=== PATIENT | male | born 1970 | race Caucasian/White ===

== ENCOUNTER 2016-08-06 15:58 | Emergency (ER) | payer SELFPAY ==
[2016-08-06 19:46] VITALS: BP 137/105
--- NOTE | 2016-08-06 19:58 | UC ---
Respiratory Complaint HPI - HPI Summary HPI Summary: 45 yo male with cough x 4 weeks Initially a lot of sinus pressure and post nasal drip now primarily in chest chest tightness productive cough wheezing no CP or SOB smoker - History of Current Complaint Chief Complaint: UCRespiratory Stated Complaint: COUGH Time Seen by Provider: 08/06/16 19:51 Hx Obtained From: Patient Onset/Duration: Gradual Onset, Lasting Weeks Timing: Constant Severity Initially: Mild Severity Currently: Moderate Pain Intensity: 4 Pain Scale Used: 0-10 Numeric Character: Cough: Productive Aggravating Factors: Exertion, Deep Breaths Alleviating Factors: Nothing Associated Signs And Symptoms: Positive: Wheezing, Nasal Congestion, Hoarseness , Sinus Discomfort Related History: Similar Episode/Dx as: - bronchitis...he has use inhalers - Allergies/Home Medications Allergies/Adverse Reactions: Allergies Allergy/AdvReac Type Severity Reaction Status Date / Time No Known Allergies Allergy Verified 08/06/16 19:39 Home Medications: Home Medications guaiFENesin ER TAB [Mucinex*] 1,200 mg PO BID PRN 08/06/16 [History Confirmed ] PMH/Surg Hx/FS Hx/Imm Hx Previously Healthy: Yes Endocrine History Of: Denies: Diabetes Cardiovascular History Of: Reports: Cardiac Disorders - Pacemaker for 3* Heart Block Denies: Hypertension Respiratory History Of: Reports: Bronchitis, Pneumonia Denies: Asthma - Surgical History Surgical History: Yes Surgery Procedure, Year, and Place: Umbilical Herniorrhaphies, 2013 2014 2015, [place] - Family History Known Family History: Positive: Hypertension, Respiratory Disease - Social History Alcohol Use: None Substance Use Type: None Smoking Status (MU): Heavy Every Day Tobacco Smoker Type: Cigarettes, Smokeless Tobacco Amount Used/How Often: ~1 PPD and 1/2 can a day Length of Time of Smoking/Using Tobacco: 38 Years Have You Smoked in the Last Year: Yes Household Exposure Type: Cigarettes - Immunization History Most Recent Influenza Vaccination: Not the 2015/2016 Season Review of Systems Constitutional: Negative Skin: Negative Eyes: Negative ENT: Nasal Discharge Respiratory: Cough Cardiovascular: Negative Gastrointestinal: Negative Genitourinary: Negative Motor: Negative Neurovascular: Negative Musculoskeletal: Negative Neurological: Negative Psychological: Negative All Other Systems Reviewed And Are Negative: Yes Physical Exam Triage Information Reviewed: Yes Appearance: Well-Appearing, No Pain Distress, Well-Nourished, Obese Vital Signs: Initial Vital Signs Temp 98.9 F 08/06/16 19:36 Pulse 102 08/06/16 19:36 Resp 24 08/06/16 19:36 BP 137/105 08/06/16 19:36 Pulse Ox 100 08/06/16 19:36 Vital Signs Reviewed: Yes Eyes: Positive: Conjunctiva Clear. Negative: Conjunctiva Inflamed, Discharge ENT: Positive: Hearing grossly normal, Nasal congestion, Nasal drainage. Negative: Trismus, Muffled/hoarse voice Neck: Positive: Supple, Nontender, No Lymphadenopathy Respiratory: Positive: Lungs clear, Normal breath sounds, No respiratory distress, No accessory muscle use Cardiovascular Exam: Normal Cardiovascular: Positive: RRR Musculoskeletal: Positive: Strength Intact, ROM Intact, No Edema Neurological: Positive: Alert, Muscle Tone Normal. Negative: Fatigued Psychological Exam: Normal Skin Exam: Normal UC Diagnostic Evaluation - Laboratory O2 Sat by Pulse Oximetry: 100 - normal/not hypoxic Respiratory Course/Dx - Differential Dx/Diagnosis Provider Diagnoses: aqcute bronchitis with bronchospasm Discharge - Discharge Plan Condition: Stable Disposition: HOME Prescriptions: Amoxicillin (*) 875 mg PO BID #20 tab Prednisone [Deltasone] 40 mg PO DAILY #10 tab Patient Education Materials: Acute Bronchitis (ED) Forms: *Work Release Referrals: [facility] [Outside] - If Needed (they will helop you find a local MD) Additional Instructions: continue to try to stop smoking recheck in 4 days if not better recheck sooner for worsening symptoms
[2016-08-06] MEDS ORDERED: predniSONE TAB* 20 MG PO ONE (20:01)
[2016-08-06] MEDS ORDERED: Albuterol HFA INHALER* 8 gm MDI INH ONE (20:01)
== END 2016-08-06 20:18 | disposition home or self-care (01) ==
LOC: UCCORT 15:58
DX: J20.9 Acute bronchitis, unspecified (principal); R09.81 Nasal congestion; F17.210 Nicotine dependence, cigarettes, uncomplicated
CPT/HCPCS: 94640; 99212; A9270-GY; G0463; J7512

== ENCOUNTER 2017-01-04 13:01 | Emergency (ER) | payer SELFPAY ==
[2017-01-04 13:42] VITALS: BP 130/101
--- NOTE | 2017-01-04 14:29 | UC ---
Skin Complaint HPI - HPI Summary HPI Summary: Patient scratched derrick glass right toew with a backscratcher and now has an ucleration of the ote, the toe is red and swollend, the foot is also swollen. - History of Current Complaint Chief Complaint: UCLowerExtremity Time Seen by Provider: 01/04/17 14:16 Stated Complaint: RIGHT FOOT,3RD TOE Hx Obtained From: Patient Onset/Duration: Sudden Onset, Lasting Days Skin Exposure Onset/Duration: Days Ago Timing: Constant Onset Severity: Mild Current Severity: Moderate Location: Discrete, Foot (Right) Character: Swelling, Pruritus, Redness, Painful Aggravating: Touch Alleviating: Nothing Related History: Trauma - Allergy/Home Medications Allergies/Adverse Reactions: Allergies Allergy/AdvReac Type Severity Reaction Status Date / Time No Known Allergies Allergy Verified 01/04/17 13:29 Review of Systems Constitutional: Negative Skin: Other - ulcer Eyes: Negative ENT: Negative Respiratory: Negative Cardiovascular: Negative Gastrointestinal: Negative Genitourinary: Negative Motor: Negative Neurovascular: Negative Musculoskeletal: Negative Neurological: Negative Psychological: Negative All Other Systems Reviewed And Are Negative: Yes PMH/Surg Hx/FS Hx/Imm Hx Previously Healthy: Yes - Surgical History Surgical History: Yes Surgery Procedure, Year, and Place: Umbilical Herniorrhaphies, 2013 2014 2015, [place] - Family History Known Family History: Positive: Hypertension, Respiratory Disease - Social History Alcohol Use: None Substance Use Type: Marijuana Substance Use Comment - Amount & Last Used: occasionally Smoking Status (MU): Heavy Every Day Tobacco Smoker Type: Cigarettes, Smokeless Tobacco Amount Used/How Often: 1 ppd Length of Time of Smoking/Using Tobacco: 38 Years Have You Smoked in the Last Year: Yes Household Exposure Type: Cigarettes - Immunization History Most Recent Influenza Vaccination: Not the 2015/2016 Season Most Recent Tetanus Shot: UTD Most Recent Pneumonia Vaccination: N/A Physical Exam Triage Information Reviewed: Yes Appearance: Ill-Appearing, Pain Distress, Obese Vital Signs: Initial Vital Signs Temp 98.4 F 01/04/17 13:30 Pulse 90 01/04/17 13:30 Resp 18 01/04/17 13:30 BP 130/101 01/04/17 13:30 Pulse Ox 100 01/04/17 13:30 Vital Signs Reviewed: Yes Eye Exam: Normal Eyes: Positive: Conjunctiva Clear ENT: Positive: Hearing grossly normal, Pharynx normal, TMs normal Dental Exam: Normal Neck exam: Normal Neck: Positive: Supple, Nontender, No Lymphadenopathy Respiratory Exam: Normal Respiratory: Positive: Chest non-tender, Lungs clear, Normal breath sounds Cardiovascular Exam: Normal Cardiovascular: Positive: RRR, No Murmur, Pulses Normal Abdominal Exam: Normal Abdomen Description: Positive: Nontender, No Organomegaly, Soft Bowel Sounds: Positive: Present Musculoskeletal Exam: Normal Musculoskeletal: Positive: Strength Intact, ROM Intact, No Edema Neurological Exam: Normal Neurological: Positive: Alert, Muscle Tone Normal Psychological Exam: Normal Skin Exam: Normal Course/Dx - Course Course Of Treatment: hx obtained, exam performed, meds reviewed, patient is in the room using chew, advised him to dispose of the chew while in the room, Patients BP is elevated, advised making an appointment with his PCP to discuss management and he is also wanting a script for viagra, provider advised talking with PCP as well about this issue as he needs a complete physical exam. treated for cellulitis - Differential Diagnoses - Skin Complaint Differential Diagnoses: Abscess, Cellulitis, Contact Dermatitis, MRSA - Diagnoses Provider Diagnoses: ulceration of right middle toe. cellulitis of right middle toe Discharge - Discharge Plan Condition: Stable Disposition: HOME Patient Education Materials: Cellulitis (ED) Additional Instructions: 1. take the medication as prescribed. 2. I recommend follow up with your provider to discuss the medication inquiry of viagra as well as your elevated Blood Pressure. 3. Your Blood pressure today was 130/101. 4. Soak your foot daily in warm water. 5. keep the area clean and dry.
== END 2017-01-04 14:44 | disposition home or self-care (01) ==
LOC: UCCORT 13:01
DX: L03.031 Cellulitis of right toe (principal); R03.0 Elevated blood-pressure reading, without diagnosis of hypertension; F17.210 Nicotine dependence, cigarettes, uncomplicated
CPT/HCPCS: 99213; G0463

== ENCOUNTER 2017-03-22 18:26 | Emergency (ER) | payer SELFPAY ==
--- NOTE | 2017-03-22 18:31 | UC ---
Lower Extremity/Ankle HPI - HPI Summary HPI Summary: 46 YEAR OLD MALE PRESENTS WITH RIGHT FOOT PAIN. - History of Current Complaint Stated Complaint: RIGHT FOOT COMPLAINT Time Seen by Provider: 03/22/17 18:30 Hx Obtained From: Patient Onset/Duration: Sudden Onset Severity Initially: Moderate Severity Currently: Moderate Pain Scale Used: 0-10 Numeric - 5 Aggravating Factor(s): Standing Alleviating Factor(s): Elevation Able to Bear Weight: Yes - Allergies/Home Medications Allergies/Adverse Reactions: Allergies Allergy/AdvReac Type Severity Reaction Status Date / Time No Known Allergies Allergy Verified 01/04/17 13:29 Home Medications: Home Medications DOXYcycline CAP(*) [DOXYcycline 100MG CAP(*)] 100 mg PO BID 03/22/17 [History Confirmed 03/22/17] PMH/Surg Hx/FS Hx/Imm Hx Previously Healthy: Yes - Surgical History Surgical History: Yes Surgery Procedure, Year, and Place: Umbilical Herniorrhaphies, 2013 2014 2015, [place] - Family History Known Family History: Positive: Hypertension, Respiratory Disease - Social History Alcohol Use: None Substance Use Type: Marijuana Substance Use Comment - Amount & Last Used: occasionally Smoking Status (MU): Heavy Every Day Tobacco Smoker Type: Cigarettes, Smokeless Tobacco Amount Used/How Often: 1 ppd Length of Time of Smoking/Using Tobacco: 38 Years Have You Smoked in the Last Year: Yes Household Exposure Type: Cigarettes - Immunization History Most Recent Influenza Vaccination: Not the 2015/2016 Season Most Recent Tetanus Shot: UTD Most Recent Pneumonia Vaccination: N/A Review of Systems Constitutional: Negative Skin: Negative Eyes: Negative ENT: Negative Respiratory: Negative Cardiovascular: Negative Gastrointestinal: Negative Genitourinary: Negative Motor: Negative Neurovascular: Negative Musculoskeletal: Other: - RIGHT FOOT PAIN/SWELLING Neurological: Negative Psychological: Negative All Other Systems Reviewed And Are Negative: Yes Physical Exam Triage Information Reviewed: Yes Eye Exam: Normal ENT Exam: Normal Dental Exam: Normal Neck exam: Normal Neck: Positive: 1 Respiratory Exam: Normal Cardiovascular Exam: Normal Abdominal Exam: Normal Musculoskeletal: Positive: Other: - RIGHT FOOT SWELLING/PAIN Neurological Exam: Normal Psychological Exam: Normal Skin Exam: Normal Lower Extremity Course/Dx - Differential Dx/Diagnosis Provider Diagnoses: RIGHT FOOT SWELLING/PAIN Discharge - Discharge Plan Condition: Stable Disposition: HOME Patient Education Materials: Foot Sprain (ED), Leg Edema (ED) Referrals: Darline Brown MD [Primary Care Provider] - If Needed
[2017-03-22 18:37] VITALS: BP 151/92
--- NOTE | 2017-03-22 19:24 | RAD ---
INDICATION: Right foot swelling. TECHNIQUE: 3 views of the right foot were obtained. FINDINGS: There is diffuse soft tissue swelling which is most prominent along the dorsal aspect of the foot. The bones are in normal alignment. No significant focal osseous abnormality is seen. No erosive changes or periosteal reaction is noted. Joint spaces appear maintained. IMPRESSION: SOFT TISSUE SWELLING, NO SPECIFIC EVIDENCE FOR OSTEOMYELITIS.
--- NOTE | 2017-03-22 19:26 | RAD ---
INDICATION: Right lower leg swelling. TECHNIQUE: 2 views of the right lower leg were obtained. FINDINGS: There is diffuse soft tissue swelling. No significant focal osseous abnormality or fracture is seen. IMPRESSION: DIFFUSE SOFT TISSUE SWELLING.
== END 2017-03-22 19:45 | disposition home or self-care (01) ==
LOC: UCCORT 18:26
DX: M79.671 Pain in right foot (principal); M79.89 Other specified soft tissue disorders; F12.90 Cannabis use, unspecified, uncomplicated; F17.210 Nicotine dependence, cigarettes, uncomplicated
CPT/HCPCS: 99212; G0463

== ENCOUNTER 2018-04-24 16:13 | Emergency (ER) | payer SELFPAY ==
--- OUTSIDE RECORDS SUMMARY | 2018-04-24 16:22 | XMS REPORT ---
:1970 External Reference #:[id number] Author Organization [facility] Address [address] [place] [address] Phone [phone] Care Team Providers Name Role Phone Darline Brown MD Care Team Information Animal Nurse Unavailable Payers Type Date Identification Numbers Payment Provider Subscriber Commercial Policy Number: [id number] [employer] Lan Montoya PayID: [id number] [address] [address] [place] [address] Problems Description No Information Family History Date Family Member(s) Problem(s) Comments Father Heart Disease Father [place] Father Peripheral Vascular Disease (PVD) Father Hypertension Mother Chronic Obstructive Pulmonary Disease (COPD) Social History Type Date Description Comments Cigarette Use Current Cigarette Smoker 1 1/2 Packs Daily ETOH Use Denies alcohol use Recreational Drug Use cannibus use Allergies, Adverse Reactions, Alerts Date Description Reaction Status Severity Comments 03/07/2010 NKDA active Medications Medication Date Status Form Strength Qnty SIG Indications Ordering Provider No Active Active Unknown Medications 018 Nicotrol Hx Inhaler 10mg 336unit one Elyn Ring, 018 - s inhaler up MD to 10 a 018 day Atorvastatin Hx Tablets 10mg 90tabs 1 by mouth Elyn Ring, Calcium 018 - every day 018 No Active Hx Unknown Medications 017 - 018 Lisinopril Hx Tablets 10mg 90tabs 1 by mouth Elyn Ring, 015 - every day MD 015 Lovastatin Hx Tablets 20mg 90tabs 1 by mouth Elyn Ring, 015 - every day 017 Norvasc Hx Tablets 5mg 30tabs 1 by mouth Elyn Ring, 015 - every day 017 Iodoform Hx Gauze 1Bottle apply Elyn Ring, 015 - small amount bid 017 under dsd Amoxicillin Hx Tablets 500mg 30tabs 1 by mouth Elyn Ring, 015 - three times a 017 day No Medication 00/00/0 Hx Unknown 000 - 015 Ibuprofen 0 Hx Tablets 400mg 1 tab by Unknown 000 - mouth every 6 018 hours as needed Vital Signs Date Vital Result Comment 03/26/2018 BP Systolic 132 mmHg BP Diastolic 80 mmHg Height 65 inches 5'5" Weight 270.00 lb BMI (Body Mass Index) 44.9 kg/m2 12/18/2017 BP Systolic 138 mmHg BP Diastolic 88 mmHg Heart Rate 104 /min Respiratory Rate 20 /min Weight 285.00 lb O2 % BldC Oximetry 92 % 03/28/2017 BP Systolic 130 mmHg BP Diastolic 65 mmHg 03/29/2015 BP Systolic 138 mmHg BP Diastolic 92 mmHg Height 65 inches 5'5" Weight 249.00 lb BMI (Body Mass Index) 41.4 kg/m2 02/16/2015 Height 65 inches 5'5" Weight 247.00 lb BMI (Body Mass Index) 41.1 kg/m2 03/28/2010 BP Systolic 122 mmHg BP Diastolic 80 mmHg 03/28/2010 BP Systolic 114 mmHg 03/07/2010 BP Systolic 120 mmHg BP Diastolic 100 mmHg Heart Rate 100 /min Respiratory Rate 16 /min Height 64 inches 5'4" Weight 221.00 lb BMI (Body Mass Index) 37.9 kg/m2 O2 % BldC Oximetry 97 % Results Test Date Test Result H/L Range Note Lipid Panel 12/10/2017 Cholesterol 222 mg/dL High <199 1 HDL Cholesterol 38 mg/dL Low >40 1 Cholesterol/HDL Ratio 5.8 CALC High <5.0 1 LDL Chol,Calculated 146 mg/dL High 0-100 1, 2 Triglycerides 236 mg/dL High <150 1 Non-HDL Cholesterol 183 mg/dL High <130 1, 3 Hepatic Function Panel 12/10/2017 Alkaline Phosphatase 68 U/L 40-115 1 Ast 23 U/L 10-40 1 Alt 38 U/L 9-46 1 Bilirubin,Total 0.6 mg/dL 0.2-1.2 1 Bilirubin,Direct 0.1 mg/dL < Or=0.2 1 Protein,Total 6.8 g/dL 6.1-8.1 1 Albumin 4.4 g/dL 3.6-5.1 1 Globulin,Calculated 2.4 g/dL 1.9-3.7 1 A/G Ratio 1.8 1.0-2.5 1 CBC W/ Diff & PLT 12/10/2017 WBC 8.6 thous/L 3.8-10.8 1 RBC 5.75 mill/L 4.20-5.80 1 Hemoglobin 17.7 g/dL High 13.2-17.1 1 Hematocrit 54.1 % High 38.5-50.0 1 MCV 94.2 FL 80.0-100.0 1 MCH 30.7 pg 27.0-33.0 1 MCHC 32.6 g/dL 32.0-36.0 1 RDW 14.8 % 11.0-15.0 1 Platelet Count 242 thous/L 140-400 1 Platelet Sufficiency PENDING 1 MPV 8.1 FL 7.5-12.5 1 Neutrophils,Absolute 5670 cells/L 0794-6464 1 Bands,Absolute PENDING 1 Metamyelocytes,Absolute PENDING 1 Myelocytes,Absolute PENDING 1 Promyelocytes,Absolute PENDING 1 Lymphocytes,Absolute 2410 cells/L 850-3900 1 Monocytes,Absolute 410 cells/L 200-950 1 Eosinophils,Absolute 120 cells/L 15-500 1 Basophils,Absolute 30 cells/L 0-200 1 Blast Cells,Absolute PENDING 1 Nucleated RBC,Absolute PENDING 1 Total Neutrophils,% 66 % 40-75 1 Bands,% PENDING 1 Metamyelocytes,% PENDING 1 Myelocytes,% PENDING 1 Promyelocytes,% PENDING 1 Total Lymphocytes,% 28 % 12-47 1 Monocytes,% 5 % 4-12 1 Eosinophils,% 1 % 0-4 1 Basophils,% 0 % 0-1 1, 4 Blasts,% PENDING 1 Nucleated RBC PENDING 1 RBC Morphology PENDING 1 Anisocytosis PENDING 1 Poikilocytosis PENDING 1 Microcytosis PENDING 1 Macrocytosis PENDING 1 Polychromasia PENDING 1 Hypochromasia PENDING 1 Target Cells PENDING 1 Basophilic Stippling PENDING 1 Comment PENDING 1 Comp Metabolic Panel 12/10/2017 Sodium 140 mmol/L 135-146 1 Potassium 4.2 mmol/L 3.5-5.3 1 Chloride 102 mmol/L 98-110 1 Carbon Dioxide 30 mmol/L 20-31 1 Calcium 9.2 mg/dL 8.6-10.3 1 Alkaline Phosphatase 68 U/L 40-115 1 Ast 23 U/L 10-40 1 Alt 38 U/L 9-46 1 Bilirubin,Total 0.6 mg/dL 0.2-1.2 1 Glucose 113 mg/dL High 65-99 1, 5 Urea Nitrogen (BUN) 16 mg/dL 7-25 1 Creatinine 0.88 mg/dL 0.60-1.35 1 BUN/Creatinine Ratio 18.5 6-22 1 Protein,Total 6.8 g/dL 6.1-8.1 1 Albumin 4.4 g/dL 3.6-5.1 1 Globulin,Calculated 2.4 g/dL 1.9-3.7 1 A/G Ratio 1.8 1.0-2.5 1 Egfr Non-Afr. Nepalese 101 ML/MIN/1.73M2 > Or=60 1 Egfr 117 ML/MIN/1.73M2 > Or=60 1 Laboratory test finding 12/10/2017 TSH 1.24 mIU/L 0.40-4.50 1 T4,Free 1.2 ng/dL 0.8-1.8 1 1 FASTING 2 LDL-C is now calculated using the Timoteo-Eulalia calculation, which is a validated novel method providing better accuracy than the Friedewald equation in the estimation of LDL-C. Timoteo CASTELLANOS et al.MARYAM.2013;310(19):6610-9180 Desirable range <100 mg/dL for primary prevention; <70 mg/dL for patients with CHD or diabetic patients with >or=2 CHD risk factors. For additional information, please refer to http://education.[employer] [place]/faq/GMK407(This link is being provided for informational/educational purposes only.) 3 For patients with diabetes plus 1 major ASCVD risk factor, treating to a non-HDL-C goal of <100 mg/dL (LDL-C of <70 mg/ dL) is considered a therapeutic option. 4 Relative blood cell counts (%) should be compared with absolute cell counts (cells/mcL). Relative counts may not be clinically meaningful if the absolute count of one or more cell type is decreased. Reference ranges for relative cell counts derived from: A Manual of Laboratory and Diagnostics Tests, 9th Ed, Donte Attila & Perdomo, 2015. Pediatric Reference Intervals, 7th Ed, [employer], 2011. 5 GLUCOSE REFERENCE RANGE BASED ON FASTING SPECIMEN. Procedures Description No Information Encounters Type Date Location Provider CPT E/M Office Visit 03/26/2018 9:15a [place] [id number] Office Visit 12/18/2017 2:45p [place] [id number] Office Visit 03/28/2017 2:00p [place] [id number] Office Visit 03/29/2015 4:00p [place] [id number] Office Visit 02/16/2015 4:00p [place] [id number] Office Visit 03/28/2010 3:30p [place] [id number]
--- OUTSIDE RECORDS SUMMARY | 2018-04-24 16:23 | XMS REPORT ---
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 Bolivian 101 ML/MIN/1.73M2 > Or=60 1 Egfr 117 ML/MIN/1.73M2 > Or=60 1 Laboratory test finding 12/10/2017 TSH 1.24 mIU/L 0.40-4.50 1 T4,Free 1.2 ng/dL 0.8-1.8 1 1 FASTING 2 LDL-C is now calculated using the Timoteo-Eulalia calculation, which is a validated novel method providing better accuracy than the Friedewald equation in the estimation of LDL-C. Timoteo CASTELLANOS et al.MARYAM.2013;310(19):3676-0816 Desirable range <100 mg/dL for primary prevention; <70 mg/dL for patients with CHD or diabetic patients with >or=2 CHD risk factors. For additional information, please refer to http://education.[employer]/faq/MPU090(This link is being provided for informational/educational purposes [...] Date Location Provider CPT E/M Office Visit 12/18/2017 2:45p [place] [address] Office Visit 03/28/2017 2:00p [place] [id number] Office Visit 03/29/2015 4:00p [place] [id number] Office Visit 02/16/2015 4:00p [place] [address] Office Visit 03/28/2010 3:30p [place] [address]
[2018-04-24 17:11] VITALS: BP 127/88
--- NOTE | 2018-04-24 18:21 | UC ---
Eye Complaint HPI - HPI Summary HPI Summary: 47-year-old male presents with one-day history of right lower eyelid tenderness and swelling with redness and itchiness of right eye. States he tried using some erythromycin ointment that he had at home but swelling has continued to worsen. Denies fever, chills, visual disturbances, trauma, or discharge. - History of Current Complaint Chief Complaint: UCEye Stated Complaint: RT EYE COMP Time Seen by Provider: 04/24/18 17:49 Hx Obtained From: Patient Onset/Duration: Gradual Onset Timing: Constant Severity Initially: Mild Severity Currently: Mild Pain Intensity: 3 Location of Injury: Conjunctiva, Eye Lid (lower) Character: Throbbing Aggravating Factor(s): Other - Touch Alleviating Factor(s): Nothing Associated Signs And Symptoms: Positive: Swelling - Right lower lid. Negative: Photophobia, Drainage (Clear), Drainage (Purulent) - Touch, Vision Impairment Right, Fever - Allergies/Home Medications Allergies/Adverse Reactions: Allergies Allergy/AdvReac Type Severity Reaction Status Date / Time No Known Allergies Allergy Verified 04/24/18 17:02 PMH/Surg Hx/FS Hx/Imm Hx Previously Healthy: Yes - denies significant past medical history - Surgical History Surgical History: Yes Surgery Procedure, Year, and Place: Umbilical Herniorrhaphies, 2013 2014 2015, [place] - Family History Known Family History: Positive: Hypertension, Respiratory Disease - Social History Occupation: Employed Full-time Lives: With Family Alcohol Use: None Substance Use Type: Marijuana Substance Use Comment - Amount & Last Used: occasionally Smoking Status (MU): Heavy Every Day Tobacco Smoker Type: Cigarettes, Smokeless Tobacco Amount Used/How Often: 1 ppd Length of Time of Smoking/Using Tobacco: 38 Years Have You Smoked in the Last Year: Yes Household Exposure Type: Cigarettes - Immunization History Most Recent Influenza Vaccination: Not the 2016/2016 Season Most Recent Tetanus Shot: Apr 2018 Most Recent Pneumonia Vaccination: N/A Review of Systems Constitutional: Negative Skin: Negative Eyes: Eye Redness - Right eye with itchiness, Other - Right lower lid swelling and tenderness ENT: Negative Is Patient Immunocompromised?: No All Other Systems Reviewed And Are Negative: Yes Physical Exam Triage Information Reviewed: Yes Appearance: Well-Appearing, No Pain Distress, Obese Vital Signs: Initial Vital Signs Temp 97.8 F 04/24/18 17:03 Pulse 87 04/24/18 17:03 Resp 22 04/24/18 17:03 BP 127/88 04/24/18 17:03 Pulse Ox 96 04/24/18 17:03 Vital Signs Reviewed: Yes Eyes: Positive: Conjunctiva Inflamed - Right eye, Other: - Chalazion with erythema and tenderness right lower lid near the inner canthus. Mild blepharitis of the right lower lid.. Negative: Discharge ENT: Positive: Normal ENT inspection Neck: Positive: Supple, Nontender, No Lymphadenopathy Respiratory: Positive: Lungs clear, Normal breath sounds, No respiratory distress Cardiovascular: Positive: RRR, No Murmur Neurological: Positive: Alert Skin Exam: Normal Eye Complaint Course/Dx - Course Course Of Treatment: 47 year old male with 1 day history swelling and tenderness to right lower eye lid with right eye redness and itching. Exam reveals a chalazion to the right lower lid near the inner canthus with mild swelling of lower lid. He also had mild conjuctival injection with itching therefore will with 5 day course Polytrim. He was given a referral to ophtalmology for follow up if no improvement in symtoms. - Differential Dx/Diagnosis Provider Diagnoses: chalazion right lower eyelid, conjunctivitis Discharge - Sign-Out/Discharge Documenting (check all that apply): Patient Departure All imaging exams completed and their final reports reviewed: No Studies - Discharge Plan Condition: Stable Disposition: HOME Prescriptions: Polymyx/Trimethoprim OPTH* [Polytrim OPHTH*] 1 drop RIGHT EYE Q4H 7 Days #1 btl Patient Education Materials: Chalazion (ED) Referrals: Darline Brown MD [Primary Care Provider] - Antonio Iniguez MD [Medical Doctor] - 3 Days (Call for appointment if no improvement.) Additional Instructions: Use Polytrim ophthalmic drops. Instill 1 drop into the affected eye every 4 hours while awake for 7 days. Apply warm moist compresses to eye for 15 minutes 4 times a day. You have been referred to Dr. Orozco, ophthalmology. Call for appointment in 3 days if no improvement in symptoms. Seek immediate medical attention if you develop fever greater than 100.5 F, have changes or loss of vision, increased swelling of the eye lid, pain that is not managed with over the counter pain medication, or any worsening of symptoms. - Billing Disposition and Condition Condition: STABLE Disposition: Home
== END 2018-04-24 18:28 | disposition home or self-care (01) ==
LOC: UCCORT 16:13
DX: H00.12 Chalazion right lower eyelid (principal); H10.9 Unspecified conjunctivitis; F17.210 Nicotine dependence, cigarettes, uncomplicated
CPT/HCPCS: 99212; G0463

== ENCOUNTER 2018-06-06 12:31 | Emergency (ER) | payer SELFPAY ==
[2018-06-06 14:49] VITALS: BP 140/96
[2018-06-06] MEDS ORDERED: Ketorolac INJ* 60 MG/2 ML VIAL IM ONE (15:08)
--- NOTE | 2018-06-06 15:14 | UC ---
UC General HPI - HPI Summary HPI Summary: ANITA 2 DAYS AGO WITH SOME PAIN TO HIS INNER R SHOULDER BLADE. NO HX INJURY. OCCURES WITH CERTAIN MOVEMENTS. PT POINTS TO R TRAPEZIUS MM. NO CP OR SOB. OCCASIONAL TINGLE R THUMB - History of Current Complaint Chief Complaint: UCUpperExtremity Stated Complaint: RT SHOULDER COMPLAINT Time Seen by Provider: 06/06/18 15:01 Hx Obtained From: Patient Pain Intensity: 6 Aggravating: MOVEMENT Associated Signs & Symptoms: Negative: Cough, Chest Pain, SOB, Weakness - Allergy/Home Medications Allergies/Adverse Reactions: Allergies Allergy/AdvReac Type Severity Reaction Status Date / Time No Known Allergies Allergy Verified 06/06/18 14:42 PMH/Surg Hx/FS Hx/Imm Hx - Surgical History Surgical History: Yes Surgery Procedure, Year, and Place: Umbilical Herniorrhaphies, 2013 2014 2015, [place] - Family History Known Family History: Positive: Hypertension, Respiratory Disease - Social History Alcohol Use: None Substance Use Type: Marijuana Substance Use Comment - Amount & Last Used: occasionally Smoking Status (MU): Heavy Every Day Tobacco Smoker Type: Cigarettes, Smokeless Tobacco Amount Used/How Often: 1 ppd Length of Time of Smoking/Using Tobacco: 38 Years Have You Smoked in the Last Year: Yes Household Exposure Type: Cigarettes - Immunization History Most Recent Influenza Vaccination: Not the 2015/2016 Season Most Recent Tetanus Shot: Apr 2018 Most Recent Pneumonia Vaccination: N/A Review of Systems Constitutional: Negative Skin: Negative Eyes: Negative ENT: Negative Respiratory: Negative Cardiovascular: Negative Gastrointestinal: Negative Genitourinary: Negative Motor: Negative Neurovascular: Negative Musculoskeletal: Negative Neurological: Negative Psychological: Negative Is Patient Immunocompromised?: No All Other Systems Reviewed And Are Negative: Yes Physical Exam Triage Information Reviewed: Yes Appearance: Well-Appearing Vital Signs: Initial Vital Signs Temp 98 F 06/06/18 14:43 Pulse 98 06/06/18 14:43 Resp 16 06/06/18 14:43 BP 140/96 06/06/18 14:43 Pulse Ox 97 06/06/18 14:43 Vital Signs Reviewed: Yes Eyes: Positive: Conjunctiva Clear ENT: Positive: Pharynx normal, TMs normal. Negative: Nasal congestion, Nasal drainage Neck: Positive: Supple, Nontender, No Lymphadenopathy Respiratory: Positive: Chest non-tender, Lungs clear, Normal breath sounds Cardiovascular: Positive: RRR, No Murmur Abdomen Description: Positive: Nontender, No Organomegaly, Soft Bowel Sounds: Positive: Present Musculoskeletal: Positive: Other: - BARE FROM WAIST UP;TRUNK HAS NO GROSS DEFOMRTY, SWELLING OR DISCOLORATION. R TRAPEZIUS IS PINK WHERE PT REMOVED A PAIN RELIEVED ADHESIVE PATCH. TRIGGER POINT SPOT TO R MEDIAL SCAPULAR BORDER OVER TRAPEZIUS MUSCLE. RUE HAS NO SWELLING, RASH OR DISCOLRATION AND HAS FULL S/ V/M FUNCTION. Neurological: Positive: Alert Psychological: Positive: Age Appropriate Behavior Skin Exam: Normal Course/Dx - Course Course Of Treatment: NO CONCERN FOR CARDIOPULMONARY ATHOLOGY. OF DISSECTION. EXAM C/W TRAPEZIUS MM SPASM. - Differential Dx - Multi-Symptom Provider Diagnoses: R TRAPEZIUS MM SPASM. Discharge - Sign-Out/Discharge Documenting (check all that apply): Patient Departure All imaging exams completed and their final reports reviewed: No Studies - Discharge Plan Condition: Stable Disposition: HOME Prescriptions: Cyclobenzaprine TAB* [Flexeril 10 MG TAB*] 10 mg PO TID PRN #10 tab PRN Reason: Spasms - Muscle Naproxen [Naprosyn 500 mg tab] 500 mg PO BID 5 Days #10 tablet Patient Education Materials: Muscle Spasm (ED) Referrals: Darline Brown MD [Primary Care Provider] - 5 Days - Billing Disposition and Condition Condition: STABLE Disposition: Home
== END 2018-06-06 15:40 | disposition home or self-care (01) ==
LOC: UCCORT 12:31
DX: M62.838 Other muscle spasm (principal); F17.210 Nicotine dependence, cigarettes, uncomplicated
CPT/HCPCS: 96372; 99212; G0463; J1885

== ENCOUNTER 2018-12-14 21:53 | Emergency (ER) | payer SELFPAY ==
[2018-12-14] MEDS ORDERED: Azithromycin TAB* 250 MG PO ONE (22:01)
[2018-12-14] MEDS ORDERED: predniSONE TAB* 20 MG PO ONE (22:02)
[2018-12-14] MEDS ORDERED: Albuterol HFA INHALER* 8 gm MDI INH ONE (22:02)
[2018-12-14 22:03] VITALS: BP 151/102
--- NOTE | 2018-12-14 22:06 | UC ---
Respiratory Complaint HPI - HPI Summary HPI Summary: 50-year-old male 48-year-old male comes in with a chief complaint of 9-10 days of upper respiratory tract infection symptoms. He's had runny nose nasal congestion is gone into his chest. Now is having some wheezing. Getting short of breath with activity. Shortness of breath is decreased when he is not active. He is a smoker. - History of Current Complaint Chief Complaint: UCGeneralIllness Stated Complaint: CONGESTION/TIRED/COUGH Time Seen by Provider: 12/14/18 21:56 Pain Intensity: 0 - Allergies/Home Medications Allergies/Adverse Reactions: Allergies Allergy/AdvReac Type Severity Reaction Status Date / Time No Known Allergies Allergy Verified 06/06/18 14:42 Home Medications: Home Medications Guaifenesin/Dextromethorphan [Cough Dm Syrup] 15 ml PO DAILY PRN 12/14/18 [ History Confirmed 12/14/18] guaiFENesin ER TAB [Mucinex*] 600 mg PO BID PRN 12/14/18 [History Confirmed 07/23] PMH/Surg Hx/FS Hx/Imm Hx Previously Healthy: Yes - Surgical History Surgical History: Yes Surgery Procedure, Year, and Place: Umbilical Herniorrhaphies, 2013 2014 2015, [place] - Family History Known Family History: Positive: Hypertension, Respiratory Disease - Social History Alcohol Use: None Substance Use Type: Marijuana Substance Use Comment - Amount & Last Used: Last used 2016 Smoking Status (MU): Heavy Every Day Tobacco Smoker Type: Cigarettes, Smokeless Tobacco Amount Used/How Often: 1 ppd Length of Time of Smoking/Using Tobacco: 38 Years Have You Smoked in the Last Year: Yes Household Exposure Type: Cigarettes - Immunization History Most Recent Influenza Vaccination: Not the 2016/2016 Season Most Recent Tetanus Shot: Apr 2018 Most Recent Pneumonia Vaccination: N/A Review of Systems All Other Systems Reviewed And Are Negative: Yes Constitutional: Positive: Negative Skin: Positive: Negative Eyes: Positive: Negative ENT: Positive: Nasal Discharge, Sinus Congestion Respiratory: Positive: Shortness Of Breath, Cough, Other - SEE HPI Cardiovascular: Positive: Negative Gastrointestinal: Positive: Negative Motor: Positive: Negative Neurovascular: Positive: Negative Musculoskeletal: Positive: Negative Neurological: Positive: Negative Psychological: Positive: Negative Is Patient Immunocompromised?: No Physical Exam Triage Information Reviewed: Yes Appearance: No Pain Distress, Well-Nourished, Ill-Appearing - MILD Vital Signs: Initial Vital Signs Temp 98.3 F 12/14/18 21:59 Pulse 105 12/14/18 21:59 Resp 18 12/14/18 21:59 BP 151/102 12/14/18 21:59 Pulse Ox 99 12/14/18 21:59 Vital Signs Reviewed: Yes Eye Exam: Normal Eyes: Positive: Conjunctiva Clear ENT: Positive: Pharyngeal erythema, Nasal congestion, Nasal drainage Neck: Positive: Supple Respiratory: Positive: Lungs clear, Normal breath sounds, No respiratory distress Cardiovascular: Positive: RRR Musculoskeletal: Positive: Strength Intact, ROM Intact Neurological: Positive: Alert, Muscle Tone Normal Psychological Exam: Normal Psychological: Positive: Age Appropriate Behavior Skin Exam: Normal Respiratory Course/Dx - Differential Dx/Diagnosis Provider Diagnosis: Bronchitis with bronchospasm, Elevated blood pressure reading Discharge - Sign-Out/Discharge Documenting (check all that apply): Patient Departure All imaging exams completed and their final reports reviewed: No Studies - Discharge Plan Condition: Stable Disposition: HOME Prescriptions: Azithromycin 250 mg PO DAILY #4 tablet predniSONE TAB* [Deltasone 20 MG TAB*] 40 mg PO DAILY #8 tab Patient Education Materials: Acute Bronchitis (ED), Hypertension (ED), Bronchospasm (ED) Referrals: Darline Brown MD [Primary Care Provider] - Additional Instructions: FOLLOW UP WITH YOUR DOCTOR WITHIN 1 WEEK FOR YOUR HIGH BLOOD PRESSURE. GET RECHECKED SOONER IF YOUR CONDITION WORSENS OR ANY QUESTIONS OR CONCERNS. - Billing Disposition and Condition Condition: STABLE Disposition: Home
--- NOTE | 2018-12-17 10:16 | UC ---
- Progress Note Progress Note: Patient filled prescription but then lost it. Prednisone script re-sent to pharmacy Course/Dx - Diagnoses Provider Diagnoses: Bronchitis with bronchospasm, Elevated blood pressure reading Discharge - Sign-Out/Discharge Documenting (check all that apply): Post-Discharge Follow Up All imaging exams completed and their final reports reviewed: No Studies - Discharge Plan Condition: Stable Disposition: HOME Prescriptions: Azithromycin 250 mg PO DAILY #4 tablet predniSONE [Prednisone 20 MG TAB] 20 mg PO DAILY #6 tablet predniSONE TAB* [Deltasone 20 MG TAB*] 40 mg PO DAILY #8 tab Patient Education Materials: Acute Bronchitis (ED), Hypertension (ED), Bronchospasm (ED) Referrals: Darline Brown MD [Primary Care Provider] - Additional Instructions: FOLLOW UP WITH YOUR DOCTOR WITHIN 1 WEEK FOR YOUR HIGH BLOOD PRESSURE. GET RECHECKED SOONER IF YOUR CONDITION WORSENS OR ANY QUESTIONS OR CONCERNS. - Billing Disposition and Condition Condition: STABLE Disposition: Home
== END 2018-12-14 22:12 | disposition home or self-care (01) ==
LOC: UCCORT 21:53
DX: J20.9 Acute bronchitis, unspecified (principal); R03.0 Elevated blood-pressure reading, without diagnosis of hypertension; F17.210 Nicotine dependence, cigarettes, uncomplicated
CPT/HCPCS: 99213; A9270-GY; G0463; J7512

== ENCOUNTER 2019-06-28 21:43 | Emergency (ER) | payer SELFPAY ==
--- NOTE | 2019-06-28 21:47 | UC ---
Throat Pain/Nasal Hari HPI - HPI Summary HPI Summary: 48-year-old male whose had a sore throat for one week. He has been taking leftover doxycycline as well as prednisone over the past couple of days with his last dose of doxycycline being tonight. - History of Current Complaint Stated Complaint: COUGH/SORE THROAT Time Seen by Provider: 06/28/19 21:46 Hx Obtained From: Patient Onset/Duration: Gradual Onset Severity: Mild Cough: None Associated Signs & Symptoms: Positive: Negative - Allergies/Home Medications Allergies/Adverse Reactions: Allergies Allergy/AdvReac Type Severity Reaction Status Date / Time No Known Allergies Allergy Verified 06/28/19 21:49 Home Medications: Home Medications DOXYcycline CAP(*) [DOXYcycline 100MG CAP(*)] 200 mg PO DAILY 06/28/19 [History Confirmed 06/28/19] predniSONE TAB* [Deltasone 20 MG TAB*] 2 tab PO DAILY 06/28/19 [History Confirmed 06/28/19] PMH/Surg Hx/FS Hx/Imm Hx Previously Healthy: Yes Cardiovascular History: Hypertension - Surgical History Surgical History: Yes Surgery Procedure, Year, and Place: Umbilical Herniorrhaphies, 2013 2014 2015, [place] - Family History Known Family History: Positive: Hypertension, Respiratory Disease - Social History Alcohol Use: None Substance Use Type: Marijuana Substance Use Comment - Amount & Last Used: Last used 2016 Smoking Status (MU): Heavy Every Day Tobacco Smoker Type: Cigarettes, Smokeless Tobacco Amount Used/How Often: 1 ppd Length of Time of Smoking/Using Tobacco: 38 Years Have You Smoked in the Last Year: Yes Household Exposure Type: Cigarettes - Immunization History Most Recent Influenza Vaccination: Not the 2015/2016 Season Most Recent Tetanus Shot: Apr 2018 Most Recent Pneumonia Vaccination: N/A Review of Systems All Other Systems Reviewed And Are Negative: Yes ENT: Positive: Sore Throat Respiratory: Positive: Cough Is Patient Immunocompromised?: No Physical Exam Triage Information Reviewed: Yes Appearance: Well-Appearing, No Pain Distress, Well-Nourished Vital Signs Reviewed: Yes Eyes: Positive: Conjunctiva Clear ENT: Positive: Pharyngeal erythema, TMs normal, Uvula midline Neck: Positive: Supple, Nontender, No Lymphadenopathy Respiratory: Positive: Lungs clear, Normal breath sounds, No respiratory distress, No accessory muscle use Cardiovascular: Positive: RRR, No Murmur, Pulses Normal, Brisk Capillary Refill Musculoskeletal Exam: Normal Neurological Exam: Normal Psychological Exam: Normal Skin Exam: Normal Throat Pain/Nasal Course/Dx - Course Course Of Treatment: At this point in time the patient's been on doxycycline and prednisone and his throat is mildly erythematous so I'm going to continue treating him with an antibiotic for possible strep throat/tonsillitis. I don't feel he needs prednisone at this point in time his lungs are clear to auscultation. He's to follow-up with his primary care provider as needed. - Differential Dx/Diagnosis Provider Diagnosis: Tonsillitis Discharge ED - Sign-Out/Discharge Documenting (check all that apply): Patient Departure All imaging exams completed and their final reports reviewed: No Studies - Discharge Plan Condition: Good Disposition: HOME Prescriptions: Amoxicillin/Clavulanate TAB* [Augmentin TAB 875*] 875 mg PO BID 10 Days #20 tab Patient Education Materials: Pharyngitis (ED) Referrals: Darline Brown MD [Primary Care Provider] - Additional Instructions: Increase fluids, start the antibiotic tomorrow twice a day for 10 days. May take Tylenol every 4 hours or Motrin every 8 hours for fever or pain. Definite follow-up with your primary care provider if no further improvement over the next few days. - Billing Disposition and Condition Condition: GOOD Disposition: Home - Attestation Statements Provider Attestation: I was available for consult. This patient was seen by the MARELY. The patient was not presented to , seen by or examined by ma -Aminta Guaman MD
[2019-06-28 21:54] VITALS: BP 141/85
== END 2019-06-28 22:02 | disposition home or self-care (01) ==
LOC: UCCORT 21:43
DX: J03.90 Acute tonsillitis, unspecified (principal); I10 Essential (primary) hypertension; F17.210 Nicotine dependence, cigarettes, uncomplicated
CPT/HCPCS: 99212; G0463